=== PATIENT | female | born 2000 ===

== ENCOUNTER → 2025-01-22 09:03 | Outpatient (REF) | payer BC, SELFPAY | LOC: HWRAD 09:03 | PROVIDERS: ATTENDING PHYSICIAN Urology; FAMILY PHYSICIAN Family Medicine | DX: N30.10 Interstitial cystitis (chronic) without hematuria (principal); M62.89 Other specified disorders of muscle; N94.2 Vaginismus; N94.819 Vulvodynia, unspecified | CPT/HCPCS: 76770 ==